=== PATIENT | male | born 1955 | race Caucasian/White ===

== ENCOUNTER → 2018-06-23 | Outpatient (CLI) | payer OTHER ==
[2018-06-23 17:45] LABS: Appearance,Urine Clear (Clear); Bilirubin,Urine Negative (Negative); Blood,Urine Negative (Negative); Color,Urine Yellow; Glucose,Urine (UA) Negative (Negative); HCT 45.8 % (39.0-53.0); HGB 15.3 gm/dL (13.0-17.5); Ketones,Urine Negative (Negative); Leukocyte Esterase,Urine Negative (Negative); MCH 31.8 pg (25.0-35.0); MCHC 33.4 g/dL (31.0-37.0); MCV 95.4 fL (80.0-100.0); Mean Platelet Volume 7.6; Nitrite,Urine Negative (Negative); PH, Urine 5.5 (5.0-8.0); Platelet Count 227 k/uL (150-450); Protein,Urine Negative (Negative); RDW 12.9 % (11.5-15.5); Specific Gravity,Urine 1.014 (1.001-1.035); Urobilinogen,Urine <2.0 mg/dL (<2.0); WBC 6.9 k/uL (3.8-10.6)
[2018-06-23 17:51] LABS: Partial Thromboplastin Time 24.2 sec (22.0-30.0); Prothrombin Time 10.4 sec (9.0-12.0)
[2018-06-23 17:52] LABS: Albumin 4.3 g/dL (3.5-5.0); Calcium 9.3 mg/dL (8.4-10.2); Potassium 4.5 mmol/L (3.5-5.1); Total Bilirubin 0.4 mg/dL (0.2-1.3)
== END | disposition home or self-care (01) ==
LOC: LABPAT 17:00
PROVIDERS: ATTEND Orthopaedic Surgery
DX: Z01.818 Encounter for other preprocedural examination (principal)
CPT/HCPCS: 80053; 81003; 85027; 85610; 85730

== ENCOUNTER → 2018-07-07 | Outpatient (CLI) | payer OTHER | END | disposition home or self-care (01) | LOC: LABPAT 16:35 | PROVIDERS: ATTEND Orthopaedic Surgery | DX: Z01.812 Encounter for preprocedural laboratory examination (principal) | CPT/HCPCS: 87070 ==

== ENCOUNTER 2018-07-18 05:53 | Inpatient (IN) | payer OTHER ==
[~2018-07-18 05:53] MED LIST: ACETAMINOPHEN TAB 500 MG TAB PO ONE; HYDROmorphone 0.5 MG/0.5 ML SYRINGE IVP PRN; MORPHINE SULFATE 4 MG/ML SYRINGE IV PRN; ONDANSETRON 4 MG/2 ML VIAL IVP ONE; TRANEXAMIC ACID 1,000 MG in SODIUM CHLORIDE 0.9% 100 ML IVPB ONE; ceFAZolin IN SWFI 2 GM/20 ML SYRINGE IVP ONE
[2018-07-18] MEDS: LACTATED RINGERS 1,000 ML IV SCH ×3 (06:45→16:15)
[2018-07-18] MEDS ORDERED: LIDOCAINE 1% 20 ML VIAL (10MG/ML) FOR IV START INTRADERMA ONE (06:45)
[2018-07-18] MEDS ORDERED: DEXAMETHASONE SOD PHOSPHATE 10 MG/ML 1 ML VIAL IV ONE (06:45)
[2018-07-18] MEDS ORDERED: fentaNYL (PF) 50 MCG/ML 2 ML AMP IV ONE (07:07)
[2018-07-18] MEDS ORDERED: MIDAZOLAM 2 MG/2 ML VIAL IV ONE (07:07)
--- NOTE | 2018-07-18 07:32 | P.ONQ ---
Anesthesiology Proc Note - PNB - Peripheral Nerve Block Performed Right Adductor Canal Infusion Time Out Performed: Yes Procedure Start Time: :08 Procedure Stop Time: : Indication: Acute Post-Operative Pain, Requested by physician (Dr Baptiste) Sedation Type: Sedate with meaningful contact maintained Preparation: Sterile Dressing Position: Supine Catheter: Indwelling Needle Types: On-Q, Touhy Needle Size: 100mm (4") Needle Gauge: 20 Technique: Ultrasound (Image saved) Injectate: 0.5% Ropivacaine (see comment for volume) (30 mls) Blood Aspirated: No Pain Paresthesia on Injection Noted: No Resistance on Injection: Normal Events: Uneventful and Well Tolerated
[2018-07-18] MEDS ORDERED: ROPIVACAINE 246.25 MG, EPINEPHrine 0.5 MG, KETOROLAC 30 MG, cloNIDine HCL/PF 80 MCG, WA... MISCELLANE ONE ×5 (07:41)
[2018-07-18] MEDS ORDERED: ROPIVACAINE 1,100 MG, SODIUM CHLORIDE 0.9% 500 ML 330 ML MISCELLANE PRN ×2 (07:57)
[2018-07-18] MEDS ORDERED: PROPOFOL 10 MG/ML 20 ML VIAL IV ONE (08:10)
[2018-07-18] MEDS ORDERED: TRANEXAMIC ACID 1,000 MG/10 ML VIAL ONE (08:10)
[2018-07-18] MEDS ORDERED: MIDAZOLAM 2 MG/2 ML VIAL ONE (08:10)
[2018-07-18] MEDS ORDERED: fentaNYL (PF) 50 MCG/ML 2 ML AMP ONE (08:10)
[2018-07-18] MEDS ORDERED: SODIUM CHLORIDE 0.9% 100 ML BAG ONE (08:10)
[2018-07-18] MEDS ORDERED: ceFAZolin 3,000 MG in SODIUM CHLORIDE 0.9% IRRIGATIO 3,000 ML IRRIGATION ONE (08:10)
[2018-07-18] MEDS ORDERED: LACTATED RINGERS 1,000 ML IV ONE (09:03)
[2018-07-18] MEDS ORDERED: BISACODYL 10 MG SUPP RECTAL PRN (10:43)
[2018-07-18] MEDS ORDERED: HYDROcodone/APAP 7.5-325MG 1 EACH TAB PO PRN (10:43)
[2018-07-18] MEDS ORDERED: NA PHOS,M-B/NA PHOS,DI-BA 133 ML ENEMA RECTAL PRN (10:43)
[2018-07-18] MEDS ORDERED: HYDROmorphone 0.5 MG/0.5 ML SYRINGE IVP PRN ×2 (10:43)
[2018-07-18] MEDS ORDERED: HYDROmorphone 1 MG/ML 1 ML SYRINGE IVP PRN (10:43)
[2018-07-18] MEDS ORDERED: NALOXONE 0.4 MG/ML 1 ML VIAL IV PRN (10:43)
[2018-07-18] MEDS ORDERED: TEMAZEPAM 15 MG CAP PO PRN (10:43)
[2018-07-18] MEDS ORDERED: hydrOXYzine PAMOATE 25 MG CAP PO PRN (10:43)
[2018-07-18] MEDS ORDERED: MAGNESIUM HYDROXIDE 2,400 MG/10 ML CUP PO PRN (10:43)
[2018-07-18] MEDS ORDERED: LACTATED RINGERS 1,000 ML IV SCH (10:45)
[2018-07-18 11:03] VITALS: RESP 16
--- NOTE | 2018-07-18 11:16 | XR ---
EXAMINATION TYPE: XR knee limited RT DATE OF EXAM: 07/18/2018 CLINICAL HISTORY: Right knee pain and arthritis status post total knee replacement. TECHNIQUE: Portable AP and crosstable lateral views of the right knee are obtained immediately posto peratively. COMPARISON: None FINDINGS: Metallic hardware from total right knee arthroplasty is seen and appears satisfactory in a lignment and position. There is evidence of recent surgery with diffuse subcutaneous gas and soft ti ssue swelling noted. IMPRESSION: METALLIC HARDWARE FROM TOTAL RIGHT KNEE ARTHROPLASTY IS SATISFACTORY IN ALIGNMENT.
[2018-07-18 14:19] VITALS: BP 135/78; PULSE 70; TEMP 98
[2018-07-18] MEDS ORDERED: ceFAZolin IN SWFI 2 GM/20 ML SYRINGE IVP SCH (16:00)
--- NOTE | 2018-07-18 18:36 | P.OP ---
Date of Procedure: 07/18/18 Procedure(s) Performed: PREOPERATIVE DIAGNOSIS: Right knee severe osteoarthritis with genu varum POSTOPERATIVE DIAGNOSIS: Right knee severe osteoarthritis with genu varum OPERATION: Right knee cemented total replacement arthroplasty. ANESTHESIA: Spinal ESTIMATED BLOOD LOSS: 100 ml. CHARTERED WEALTH MANAGER: Tennille Garrido PA-C (assistance with: patient positioning, retraction, exposure, hemostasis, leg positioning, implantation, irrigation, closure, dressing) COMPLICATIONS: None apparent. COMPONENTS IMPLANTED: Persona system from [employer] INDICATIONS: Mr. Damico is a 63-year-old male with a history of right knee osteoarthritis. The patient's knee is end-stage, and conservative management has failed. The operation of knee replacement has been discussed at length in the office, as well as potential risks and complications. These are inclusive of, but not limited to: bleeding, infection, scarring, discomfort, blood vessel and nerve damage, need for further surgery, failure to relieve symptoms, persistence, recurrence, or worsening of problems, loosening, dislocation, wear, blood clot, pulmonary embolism, , gait dysfunction, stiffness, and other risks as discussed in the office. The patient elects to proceed and the consent form has been signed. PROCEDURE: The patient was taken to the operating room and positioned on the operating room table in the supine position. Anesthesia was initiated. Care was taken to make sure that all pressure points were adequately padded. The operative lower extremity was prepped and draped in the usual aseptic fashion using ChloraPrep. Ioban drape was used for the case and the patient received intravenous antibiotics within one hour of the incision. A pneumotourniquet and leg larson were used for the case. The limb was exsanguinated with an Esmarch bandage and the tourniquet was inflated to 350 mmHg. Time-out was called confi rming the patient's identity, side, procedure and administration of antibiotics and tranexamic acid. The incision was then created midline directly over the knee, carried down through skin and into the subcutaneous tissues and down to fascia. Full thickness subcutaneous medial flap was developed. Medial parapatellar arthrotomy was performed and the interior of the knee was inspected. There was end-stage osteoarthritis of the knee with a mild to moderate genu varum type deformity. The fat pad was excised and proximal medial release on the tibia was completed using meticulous dissection and a curved osteotome. The anterior cruciate ligament was taken down. Note was made of significant attrition of the anterior and significant degenerative appearance of the cruciate ligaments. The exposure was excellent. The knee was flexed 90 degrees and the patella was everted. A spot was chosen on the femur approximately 1 cm anterior to the posterior cruciate ligament insertion and an intramedullary hole was created within the femur. The intramedullary guide was then set to 5 degrees of valgus. The distal cutting block was attached and pinned into position. An appropriate amount of distal fe moral resection was set. The oscillating saw was then used to make the distal femoral cut. This cut was confirmed to be flat with the flat end of an osteotome. The retractors were placed around the tibia and the tibial surface was addressed. The angle and depth of resection was adjusted using an extramedullary cutting guide. The guide had a built-in 3 degree posterior slope cut. Once the cutting guide was adjusted appropriately and in line with the axis of the tibia and confirmed to be in good position in relation to the second metatarsal and transmalleolar axis, the tibial cut was then created with protection of the posterior neurovascular structures and the collateral ligaments. The tibial cut surface was removed and sized. Femoral sizing was then accomplished using anterior referencing. Care was taken to analyze the posterior condyles for signs of deficiency or severe wear, and adjustments to the guide were made, as appropriate. 3 degree external rotation pins were placed. The cutting jig for the femur was applied to these pins. The planned cuts were further analyzed prior to performing them with the oscillating saw. No femoral notching was produced. Bone fragments were removed and the cut surfaces were finished, as necessary, with a reciprocating saw. Spacer block technique was then used to confirm that the flexion and extension gaps were equal. Soft tissue releases and adjustment of the tibial and/or femoral cuts were made, as necessary, until the gaps were equal. This included release of the posterior cruciate ligament, which was excessively tight in this patient. The femur was then further finished for a posterior cruciate ligament substituting component. Patellar resurfacing was performed using a reamer. The size of the required patellar component was estimated and the patellar surface was then reamed down to a residual thickness which would recreate the wiyot thickness with the component. The exact placement of the patellar component was adjusted for position based on preoperative x-rays and intraoperative findings. Prior to placing trial components, anesthetic solution consisting of ropivicaine with epinephrine, ketorolac, and clonidine was injected carefully and methodically in a grid pattern using aspiration technique into the soft tissue around the knee circumferentially, starting with the deeper tissues first and progressing to fascia, and then finally the skin/subcutaneous tissue. Particular care was taken when injecting the posterior capsule. The trial components were inserted. The tibial tray was allowed to self center and the patella was noted to track very well. The position of the tibial component was marked and the tibia was then finished for a stemmed tibial component. Cement was mixed on the back table and applied to the final components. Trial components were removed and the cut surfaces of the bone were pulse lavaged thoroughly and dried. Cement was then applied to the tibial surface and pressurized into the surface using finger pressurization technique. The tibial component was then applied and excess cement was removed after it was impacted securely and noted to be flush with the cut surface. In similar fashion, the cement was applied to the cut femoral surface, pressurized in using finger pressurization and the component was impacted into place. Excess cement was removed. The polyethylene spacer was then implanted and locked into position. The patellar component was then applied in similar technique and a patellar clamp was used to hold the patella in place as the cement hardened. Once the cement had fully hardened, the knee was reinspected. Any other cement extrusion was removed and final kinematic testing showed range of motion from 0 to 130 degrees with excellent stability, both medially and laterally and appropriate alignment of the leg. Patellar tracking was excellent. The knee was then thoroughly pulse lavaged with normal saline. The tourniquet was deflated and hemostasis was obtained with electrocautery and IV tranexamic acid, 1 g given at the start of the operation and 1 g at the start of closure. Closure was with #2 Ethibond in the fascia/capsule and supplemented with #2 Quill, 2-0 Vicryl suture was used for the subcutaneous tissues and 3-0 Quill for the skin. Dermabond/Steri-Strips were then applied. A lightly compressive dressing was applied using Webril and an Donavon wrap. The patient was then transferred to stretcher and taken to the recovery room in stable condition. Sponge and needle counts were correct.
[2018-07-18] MEDS ORDERED: SENNOSIDES-DOCUSATE SODIUM 1 EACH TAB PO SCH (21:00)
--- NOTE | 2018-07-19 05:23 | P.PN ---
Progress Note - Text Progress Note Date: 07/19/18 63 yo male status post right total knee replacement. Patient received the adduc tor canal catheter. Ropivacaine 0.2% at 8 mls/hr. Patient was sitting in bed comfortably. VAS score of 0/10, no complains overnight. Assessment and plan: patient will be sent home with the adductor canal pump. Adequate pain control.
[2018-07-19] MEDS ORDERED: MELOXICAM 7.5 MG TAB PO SCH (09:00)
[2018-07-19] MEDS ORDERED: RIVAROXABAN 10 MG TAB PO SCH (09:00)
== END 2018-07-18 18:00 | disposition home health service (06) | DRG 470 ==
LOC: 2ORMAIN 05:53 → 4SSUR 10:43
PROVIDERS: ADMIT Orthopaedic Surgery; ATTEND Orthopaedic Surgery
PROC: 0SRC0J9 Replacement of Right Knee Joint with Synthetic Substitute, Cemented, Open Approach (ICD-10-PCS; principal; 2018-07-18 08:00)
DX: M17.11 Unilateral primary osteoarthritis, right knee (principal); I10 Essential (primary) hypertension; M21.161 Varus deformity, not elsewhere classified, right knee; Z79.82 Long term (current) use of aspirin; Z79.890 Hormone replacement therapy; Z79.899 Other long term (current) drug therapy; Z82.49 Family history of ischemic heart disease and other diseases of the circulatory system
CPT/HCPCS: 88300

== ENCOUNTER → 2018-12-07 | Outpatient (CLI) | payer OTHER ==
--- NOTE | 2018-12-07 09:41 | US ---
EXAMINATION TYPE: US abdomen complete DATE OF EXAM: 12/07/2018 COMPARISON: NONE CLINICAL HISTORY: Z82.3 Family Hx of Stroke. Family history of AAA. No problems EXAM MEASUREMENTS: Liver Length: 16.2 cm Gallbladder Wall: 0.2 cm CBD: 0.75 cm Spleen: 11.6 cm Right Kidney: 11.0 x 5.2 x 5.1 cm Left Kidney: 11.0 x 5.8 x 5.1 cm Pancreas: Mostly by bowel gas. Duct visualized measuring 0.25 centimeters in the pancreatic body, wi thin normal limits Liver: There is increased echogenicity of the hepatic parenchyma with diminished visualization of th e portal triads most commonly relating to hepatic steatosis and limiting evaluation for underlying he patic masses. Gallbladder: wnl Evidence for sonographic Wyman's sign: No CBD: Dilated. Distal portion obscured by bowel gas Spleen: wnl Right Kidney: No hydronephrosis or masses seen Left Kidney: No hydronephrosis. Probable renal sinus cyst measuring 1.3 cm Upper IVC: wnl Abd Aorta: Slightly obscured by bowel gas. No sonographic evidence for AAA. IMPRESSION: 1. Although the abdominal aorta is slightly obscured by bowel gas and no discrete sonographic evidenc e of abdominal aortic aneurysm is seen. 2. Sonographic findings most commonly related to hepatic steatosis, appearing mild in degree. Correla te with liver function tests. 3. Minimally dilated common bile duct although no other sonographic evidence of acute cholelithiasis is seen. Correlate with serum laboratory values and clinical exam to determine the need for MRCP or H DERREK scan.
== END | disposition home or self-care (01) ==
LOC: RADUSWWP 06:47
PROVIDERS: ATTEND Family Medicine
DX: K83.8 Other specified diseases of biliary tract (principal)
CPT/HCPCS: 76700

== ENCOUNTER → 2018-12-19 | Outpatient (CLI) | payer OTHER ==
--- NOTE | 2018-12-19 22:36 | MR ---
EXAMINATION TYPE: MR brain wo con DATE OF EXAM: 12/19/2018 COMPARISON: NONE HISTORY: no prior, family history of aneurysm, no current symptoms TECHNIQUE: Multiplanar, multisequence imaging of the brain and brainstem is performed without IV cont rast. FINDINGS: Diffusion weighted images demonstrate no evidence of a recent infarct or other diffusion abnormality. There is no worrisome extra-axial fluid collection. Mild ventricular and sulcal prominence. Scattered foci of T2 hyperintensity are seen throughout the white matter bilaterally. Approximately 15 scatter ed small lesions are seen. Midline structures demonstrate normal morphology. The craniocervical junction appears within normal limits. Normal vascular flow voids are present. Dominant left vertebral artery incidentally noted. Th ere is moderate mucosal thickening in the left maxillary sinus with large mucous retention cyst or po lyp. Mild mucosal thickening ethmoid sinuses bilaterally, left greater than right. Globes are intact bilaterally. IMPRESSION: Mild age-related diffuse cerebral atrophy and chronic small vessel ischemic change. Chron ic paranasal sinus disease most prominent at level of left maxillary sinus.
== END | disposition home or self-care (01) ==
LOC: RADMRIMAIN 16:43
PROVIDERS: ATTEND Nurse Practitioner
DX: Z13.89 Encounter for screening for other disorder (principal); Z84.89 Family history of other specified conditions
CPT/HCPCS: 70551

== ENCOUNTER → 2019-02-27 | Outpatient (CLI) | payer OTHER ==
--- NOTE | 2019-02-27 23:22 | MR ---
EXAMINATION TYPE: MR knee LT wo con DATE OF EXAM: 02/27/2019 COMPARISON: None HISTORY: Left Knee Pain, S/P Fall TECHNIQUE: Multiplanar, multisequence imaging of the left knee is performed without IV contrast. FINDINGS: The posterior cruciate ligament is intact. There is complete disruption of the anterior cruciate liga ment. There is moderate narrowing of the medial and lateral joint spaces. There is extensive increase d signal throughout the medial meniscus. There is increased signal on the proton-density images at th e base of the tibial spines and also medial tibial condyle consistent with edema and bone bruise. The re is also 1.5 cm area of edema in the lateral femoral condyle. There is extensive spurring of the me dial and lateral femoral and tibial condyles. There is complex horizontal tears of the entire lateral meniscus. There is mild knee joint effusion. I see no fracture line. There is 4 x 1 cm popliteal cys t. The collateral ligaments appear intact. IMPRESSION: Moderately severe osteoarthritis. Complete tear anterior cruciate ligament. Knee joint effusion. Popl iteal cyst Extensive tears of the medial and lateral menisci. Multiple areas of bone bruise and edema in the dis reno femur and proximal tibia.
== END | disposition home or self-care (01) ==
LOC: RADMRIMAIN 16:16
PROVIDERS: ATTEND Nurse Practitioner
DX: M17.12 Unilateral primary osteoarthritis, left knee (principal); S83.512A Sprain of anterior cruciate ligament of left knee, initial encounter; S83.242A Other tear of medial meniscus, current injury, left knee, initial encounter; S83.282A Other tear of lateral meniscus, current injury, left knee, initial encounter

== ENCOUNTER → 2019-05-24 | Outpatient (CLI) | payer OTHER ==
[2019-05-24 07:16] LABS: HCT 51.8 % (39.0-53.0); HGB 16.9 gm/dL (13.0-17.5); MCH 30.8 pg (25.0-35.0); MCHC 32.6 g/dL (31.0-37.0); MCV 94.6 fL (80.0-100.0); Mean Platelet Volume 7.9; Platelet Count 242 k/uL (150-450); RBC 5.48 m/uL (4.30-5.90); RDW 12.6 % (11.5-15.5); WBC 6.1 k/uL (3.8-10.6)
[2019-05-24 07:24] LABS: Partial Thromboplastin Time 23.4 sec (22.0-30.0); Prothrombin Time 10.3 sec (9.0-12.0)
[2019-05-24 07:37] LABS: Albumin 4.2 g/dL (3.5-5.0); Calcium 9.5 mg/dL (8.4-10.2); Potassium 5.3 mmol/L (3.5-5.1); Total Bilirubin 0.6 mg/dL (0.2-1.3); Total Protein 7.1 g/dL (6.3-8.2)
[2019-05-24 07:49] LABS: Appearance,Urine Clear (Clear); Bilirubin,Urine Negative (Negative); Blood,Urine Negative (Negative); Color,Urine Yellow; Glucose,Urine (UA) Negative (Negative); Ketones,Urine Negative (Negative); Leukocyte Esterase,Urine Negative (Negative); Nitrite,Urine Negative (Negative); PH, Urine 6.5 (5.0-8.0); Protein,Urine Negative (Negative); Specific Gravity,Urine 1.022 (1.001-1.035); Urobilinogen,Urine <2.0 mg/dL (<2.0)
== END | disposition home or self-care (01) ==
LOC: LABPAT 06:41
PROVIDERS: ATTEND Orthopaedic Surgery
DX: Z01.818 Encounter for other preprocedural examination (principal); Z01.812 Encounter for preprocedural laboratory examination; M17.12 Unilateral primary osteoarthritis, left knee
CPT/HCPCS: 36415; 80053; 81003; 85027; 85610; 85730; 87070

== ENCOUNTER 2019-06-05 05:49 | Day surgery (SDC) | payer OTHER ==
[2019-05-29 10:57] VITALS: BMI 28.6
[~2019-06-05 05:49] MED LIST changes: -HYDROmorphone 0.5 MG/0.5 ML SYRINGE IVP PRN; +MELOXICAM 7.5 MG TAB PO ONE; -MORPHINE SULFATE 4 MG/ML SYRINGE IV PRN; -ceFAZolin IN SWFI 2 GM/20 ML SYRINGE IVP ONE
[2019-06-05] MEDS ORDERED: ROPIVACAINE 246.25 MG, EPINEPHrine 0.5 MG, KETOROLAC 30 MG, cloNIDine HCL/PF 80 MCG, WA... MISCELLANE ONE ×5 (06:00)
[2019-06-05] MEDS ORDERED: DEXAMETHASONE SOD PHOSPHATE 10 MG/ML 1 ML VIAL IV ONE (07:02)
[2019-06-05] MEDS ORDERED: LACTATED RINGERS 1,000 ML IV ONE ×2 (07:02→09:23)
[2019-06-05] MEDS ORDERED: MIDAZOLAM 2 MG/2 ML VIAL IVP ONE (07:10)
[2019-06-05] MEDS ORDERED: fentaNYL (PF) 50 MCG/ML 2 ML AMP ONE (07:34)
[2019-06-05] MEDS ORDERED: PROPOFOL 10 MG/ML 20 ML VIAL IV ONE (07:34)
[2019-06-05] MEDS ORDERED: MIDAZOLAM 2 MG/2 ML VIAL ONE (07:34)
[2019-06-05] MEDS ORDERED: SUCCINYLCHOLINE CHLORIDE 100 MG/5 ML SYR IV ONE (07:34)
[2019-06-05] MEDS ORDERED: LIDOCAINE 1% INJ 10MG/ML (20 ML MDV) ONE (07:34)
[2019-06-05] MEDS ORDERED: HYDROmorphone (PF) 1 MG/ML ONE (07:34)
[2019-06-05] MEDS ORDERED: ceFAZolin 3,000 MG in SODIUM CHLORIDE 0.9% IRRIGATIO 3,000 ML IRRIGATION ONE (07:38)
--- NOTE | 2019-06-05 09:20 | P.OP ---
Date of Procedure: 06/05/19 Procedure(s) Performed: PREOPERATIVE DIAGNOSIS: Left knee severe osteoarthritis with genu varum POSTOPERATIVE DIAGNOSIS: Left knee severe osteoarthritis with genu varum OPERATION: Left knee cemented total replacement arthroplasty. ANESTHESIA: Spinal ESTIMATED BLOOD LOSS: 100 ml. PLATFORM WORKER: Tennille Garrido PA-C (assistance with: patient positioning, retraction, exposure, hemostasis, leg positioning, implantation, irrigation, closure, dressing) COMPLICATIONS: None apparent. COMPONENTS IMPLANTED: Persona system from [employer] INDICATIONS: Mr. Damico is a 64 year old male with a history of left knee osteoarthritis. Conservative treatment has been tried and has been unsuccessful in controlling symptoms adequately. The operation of knee replacement has been discussed at length in the office, as well as potential risks and complications. These are inclusive of, but not limited to: bleeding, infection, scarring, discomfort, blood vessel and nerve damage, need for further surgery, failure to relieve symptoms, persistence, recurrence, or worsening of problems, loosening, dislocation, wear, blood clot, pulmonary embolism, , gait dysfunction, stiffness, and other risks as discussed in the office. The patient elects to proceed and the consent form has been signed. PROCEDURE: The patient was taken to the operating room and positioned on the operating room table in the supine position. Anesthesia was initiated. Care was taken to make sure that all pressure points were adequately padded. The operative lower extremity was prepped and draped in the usual aseptic fashion using ChloraPrep. Ioban drape was used for the case and the patient received intravenous antibiotics within one hour of the incision. A pneumotourniquet and leg larson were used for the case. The limb was exsanguinated with an Esmarch bandage and the tourniquet was inflated to 350 mmHg. Time-out was called confirming the patient's identity, side, procedure and administration of antibiotics and tranexamic acid, 1 g IV. The incision was then created midline directly over the knee, carried down thro ugh skin and into the subcutaneous tissues and down to fascia. Full thickness subcutaneous medial flap was developed. Medial parapatellar arthrotomy was performed and the interior of the knee was inspected. There was end-stage osteoarthritis of the knee with a mild to moderate genu varum type deformity. The fat pad was excised and proximal medial release on the tibia was completed using meticulous dissection and a curved osteotome. The anterior cruciate ligament was taken down. Note was made of significant attrition of the anterior and significant degenerative appearance of the posterior cruciate ligaments. The exposure was excellent. The knee was flexed 90 degrees and the patella was everted. A spot was chosen on the femur approximately 1 cm anterior to the posterior cruciate ligament insertion and an intramedullary hole was created within the femur. The intramedullary guide was then set to 5 degrees of valgus. The distal cutting block was attached and pinned into position. An appropriate amount of distal femoral resection was set. The oscillating saw was then used to make the distal femoral cut. This cut was confirmed to be flat with the flat end of an osteotome. The retractors were placed around the tibia and the tibial surface was addressed. The angle and depth of resection was adjusted using an extramedullary cutting guide. The guide had a built-in 3 degree posterior slope cut. Once the cutting guide was adjusted appropriately and in line with the axis of the tibia and confirmed to be in good position in relation to the second metatarsal and transmalleolar axis, the tibial cut was then created with protection of the posterior neurovascular structures and the collateral ligaments. The tibial cut surface was removed and sized. Femoral sizing was then accomplished using anterior referencing. Care was taken to analyze the posterior condyles for signs of deficiency or severe wear, and adjustments to the guide were made, as appropriate. 3 degree external rotation pins were placed. The cutting jig for the femur was applied to these pins. The planned cuts were further analyzed prior to performing them with the oscillating saw. No femoral notching was produced. Bone fragments were removed and the cut surfaces were finished, as necessary, with a reciprocating saw. Spacer block technique was then used to confirm that the flexion and extension gaps were equal. Soft tissue releases and adjustment of the tibial and/or femoral cuts were made, as necessary, until the gaps were equal. This included release of the posterior cruciate ligament, which was tight in this patient. The femur was then further finished for a posterior cruciate ligament substituting component. Patellar resurfacing was performed using a reamer. The size of the required p atellar component was estimated and the patellar surface was then reamed down to a residual thickness which would recreate the seneca thickness with the component. The exact placement of the patellar component was adjusted for position based on preoperative x-rays and intraoperative findings. Prior to placing trial components, anesthetic solution consisting of ropivicaine with epinephrine, ketorolac, and clonidine was injected carefully and methodically in a grid pattern using aspiration technique into the soft tissue around the knee circumferentially, starting with the deeper tissues first and progressing to fascia, and then finally the skin/subcutaneous tissue. Particular care was taken when injecting the posterior capsule. The trial components were inserted. The tibial tray was allowed to self center and the patella was noted to track very well. The position of the tibial component was marked and the tibia was then finished for a stemmed tibial component. Cement was mixed on the back table and applied to the final components. Trial components were removed and the cut surfaces of the bone were pulse lavaged thoroughly and dried. Cement was then applied to the tibial surface and pressurized into the surface using finger pressurization technique. The tibial component was then applied and excess cement was removed after it was impacted securely and noted to be flush with the cut surface. In similar fashion, the cement was applied to the cut femoral surface, pressurized in using finger pressurization and the component was impacted into place. Excess cement was removed. The polyethylene spacer was then implanted and locked into position. The patellar component was then applied in similar technique and a patellar clamp was used to hold the patella in place as the ce ment hardened. Once the cement had fully hardened, the knee was reinspected. Any other cement extrusion was removed and final kinematic testing showed range of motion from 0 to 130 degrees with excellent stability, both medially and laterally and appropriate alignment of the leg. Patellar tracking was excellent. The knee was then thoroughly pulse lavaged with normal saline. The tourniquet was deflated and hemostasis was obtained with electrocautery and IV tranexamic acid, 1 g given prior to inflation of the tourniquet and another gram given at the time of closure. Closure was with #2 Ethibond in the fascia and supplemented with #2 Quill, 2-0 Vicryl suture was used for the subcutaneous tissues and 3-0 Quill for the skin. Dermabond/Steri-Strips were then applied. A lightly compressive dressing was applied using Webril and an Donavon wrap. [facility] was [facility] and taken to the recovery room in stable condition. Sponge and needle counts were correct.
[2019-06-05] MEDS ORDERED: ONDANSETRON 4 MG/2 ML VIAL IVP PRN (09:54)
[2019-06-05] MEDS ORDERED: BISACODYL 10 MG SUPP RECTAL PRN (09:54)
[2019-06-05] MEDS ORDERED: HYDROmorphone 1 MG/ML 1 ML SYRINGE IVP PRN (09:54)
[2019-06-05] MEDS ORDERED: HYDROcodone/APAP 7.5-325MG 1 EACH TAB PO PRN (09:54)
[2019-06-05] MEDS ORDERED: HYDROmorphone 0.5 MG/0.5 ML SYRINGE IVP PRN ×2 (09:54)
[2019-06-05] MEDS ORDERED: HYDROcodone/APAP 5-325MG 1 EACH TAB PO PRN (09:54)
[2019-06-05] MEDS ORDERED: NA PHOS,M-B/NA PHOS,DI-BA 133 ML ENEMA RECTAL PRN (09:54)
[2019-06-05] MEDS ORDERED: NALOXONE 0.4 MG/ML 1 ML VIAL IV PRN (09:54)
[2019-06-05] MEDS ORDERED: TEMAZEPAM 15 MG CAP PO PRN (09:54)
[2019-06-05] MEDS ORDERED: MAGNESIUM HYDROXIDE 2,400 MG/10 ML CUP PO PRN (09:54)
[2019-06-05] MEDS ORDERED: LACTATED RINGERS 1,000 ML IV SCH (10:00)
[2019-06-05] MEDS ORDERED: ROPIVACAINE 0.2%-NS ON-Q PUMP 1,090 MG, EMPTY PAIN BALL 1 EACH MISCELLANE PRN (10:17)
[2019-06-05] MEDS ORDERED: HYDROmorphone 1 MG/ML 1 ML SYRINGE IVP ONE ×2 (10:20→10:30)
--- NOTE | 2019-06-05 10:20 | P.ANPRN ---
Procedure Note - Anesthesia - Nerve Block Performed Left Adductor Canal Infusion Time Out Performed: Yes Date of Procedure: 06/05/19 Procedure Start Time: 07:10 Procedure Stop Time: 07:21 Location of Patient: PreOp Indication: Acute Post-Operative Pain, Requested by Surgeon Sedation Type: Sedate with meaningful contact maintained Preparation: Sterile Prep, Sterile Dressing Position: Supine Catheter: Indwelling Needle Types: Pajunk Needle Gauge: 21 Ultrasound used to visualize needle placement: Yes Ultrasound used to observe medication spread: Yes Blood Aspirated: No Pain Paresthesia on Injection Noted: No Resistance on Injection: Normal Image Stored and Saved: Yes Events: Uneventful and Well Tolerated (ropi .5% plus dexamethasone 4mg)
--- NOTE | 2019-06-05 10:37 | XR ---
EXAMINATION TYPE: XR knee limited LT DATE OF EXAM: 06/05/2019 COMPARISON: NONE TECHNIQUE: Two views submitted HISTORY: Post op FINDINGS: There is a prosthetic knee in near anatomic alignment. There is soft tissue edema and emphysema. IMPRESSION: 1. Postoperative change. Appears in near-anatomic alignment
[2019-06-05] MEDS ORDERED: HYDROmorphone 0.5 MG/0.5 ML SYRINGE IVP ONE (10:50)
[2019-06-05 13:40] VITALS: BP 129/77; PULSE 70; RESP 12; TEMP 97.9
[2019-06-05] MEDS ORDERED: SENNOSIDES-DOCUSATE SODIUM 1 EACH TAB PO SCH (21:00)
[2019-06-05] MEDS ORDERED: ASPIRIN 325 MG TAB PO SCH (21:00)
[2019-06-06] MEDS ORDERED: MELOXICAM 7.5 MG TAB PO SCH (09:00)
== END 2019-06-05 15:57 | disposition home health service (06) ==
LOC: OR 05:49 → 4SSUR 10:15 → OR 15:57
PROVIDERS: ATTEND Orthopaedic Surgery
DX: M17.12 Unilateral primary osteoarthritis, left knee (principal); M21.162 Varus deformity, not elsewhere classified, left knee; I10 Essential (primary) hypertension; N40.0 Benign prostatic hyperplasia without lower urinary tract symptoms; E07.9 Disorder of thyroid, unspecified; Z87.891 Personal history of nicotine dependence; Z79.82 Long term (current) use of aspirin; Z79.899 Other long term (current) drug therapy; Z79.890 Hormone replacement therapy; Z96.651 Presence of right artificial knee joint; Z98.890 Other specified postprocedural states; Z87.440 Personal history of urinary (tract) infections; Z82.49 Family history of ischemic heart disease and other diseases of the circulatory system
CPT/HCPCS: 97161; 64448; 76942; 84132; 88300; 73560; 27447; C1713; C1776; J2250; J0171; J1100; J0690 ×2; J2405; J2001; J3010; J1885; J1170 ×2; J2795 ×2; J0330; J2704; J0735

== ENCOUNTER → 2020-05-17 | Outpatient (CLI) | payer OTHER | END | disposition home or self-care (01) | LOC: LABWHC1 08:52 | PROVIDERS: ATTEND Urology | DX: R97.20 Elevated prostate specific antigen [PSA] (principal) | CPT/HCPCS: 36415; 84153 ==

== ENCOUNTER → 2020-09-09 | Outpatient (CLI) | payer OTHER | END | disposition home or self-care (01) | LOC: LABWHC1 10:58 | PROVIDERS: ATTEND Urology | DX: R97.20 Elevated prostate specific antigen [PSA] (principal) | CPT/HCPCS: 36415; 84153 ==

== ENCOUNTER → 2021-03-03 | Outpatient (CLI) | payer MEDICARE, OTHER | END | disposition home or self-care (01) | LOC: LABWHC1 10:35 | PROVIDERS: ATTEND Urology | DX: R97.20 Elevated prostate specific antigen [PSA] (principal) | CPT/HCPCS: 36415; 84153 ==

== ENCOUNTER → 2021-09-01 | Outpatient (CLI) | payer OTHER | END | disposition home or self-care (01) | LOC: LABWHC1 09:25 | PROVIDERS: ATTEND Urology | DX: R97.20 Elevated prostate specific antigen [PSA] (principal) | CPT/HCPCS: 36415; 84153; 84154 ==

== ENCOUNTER → 2022-06-04 | Outpatient (CLI) | payer MEDICARE | END | disposition home or self-care (01) | LOC: LABWHC1 08:19 | PROVIDERS: ATTEND Urology | DX: R97.20 Elevated prostate specific antigen [PSA] (principal) | CPT/HCPCS: 36415; 84153 ==

== ENCOUNTER → 2022-12-02 | Outpatient (CLI) | payer MEDICARE | END | disposition home or self-care (01) | LOC: LABWHC1 07:39 | PROVIDERS: ATTEND Urology | DX: R97.20 Elevated prostate specific antigen [PSA] (principal) | CPT/HCPCS: 36415; 84153 ==

== ENCOUNTER → 2023-04-16 | Outpatient (CLI) | payer MEDICARE ==
--- NOTE | 2023-04-16 12:19 | CA ---
Exercise Stress Test Report Name: Chetan Damico Exam Date: 04/16/2023 09:31 Exam Location: [place] Stress Ht (in): 67 Wt (lb): 185 BSA: 1.96 Ordering Phys: Sanam Oakley DO Referring Phys: Rene Ramey Technologist: Shakeel Contreras Age: 68 Gender: M : 1955 Procedure CPT: Indications: R94.31 ABNORMAL ELECTROCARDIOGRAM [ECG] [EKG] ICD-10 Codes: Patient History: PALP, TOB, RHEUM FEV Medications: SEE LIST Meds past 24 hrs: Pretest Chest Pain: STRESS TEST [place] Protocol Exercise Duration (min:sec): 09:[address] Depressions (mm): Angina Score: Cox Score: Resting HR (bpm): 51 Peak HR (bpm): 143 Resting BP (mmHg): 131 / 79 Peak BP (mmHg): 206 / 75 MPHR: 153 Target HR: 130 % MPHR: 93 METS: 10.9 Total Dose: Peak Dose: Atropine: Double Product: 97591 BP Response: Stress Termination: Reached target heart rate Stress Symptoms: Stress Summary: ECG ANALYSIS Resting ECG: Normal sinus rhythm, normal ECG Stress ECG: No significant ST-T wave changes that are diagnostic for ischemia with exercise. There were no sustained arrhythmias ectopic beats. CONCLUSIONS Good exercise tolerance for patient's age exercising for 9 minutes 30 seconds achieving 10.9 METs Nonischemic ECG response to exercise Normal hemodynamic and clinical response to exercise next Overall normal treadmill stress test Dr Enrrique Kyle (Electronically Signed) Final Date: 16 April 2023 12:18
--- NOTE | 2023-04-18 18:11 | NM ---
EXAMINATION TYPE: NM stress cardiolite complete DATE OF EXAM: 04/16/2023 COMPARISON: NONE CLINICAL INDICATION: Male, 68 years old with history of R94.31; TECHNIQUE: After the intravenous administration of 10.2 mCi Tc 99m Sestamibi - Rest images obtained 48 minutes post injection. The patient exercised using a CURRY protocol and 1 minute prior to peak exercise was injected with 25.4 mCi Tc 99m Sestamibi - Stress images obtained 15 minutes post injecti on. FINDINGS: Targeted heart rate (130 BPM) was achieved during performance of the study (143 BPM achieved). Total exercise time 9 minutes 30 seconds. Review of stress and rest SPECT images demonstrates fixed perfusion defect along the inferior wall. N o distinct reversibility is seen though polar map suggests that there may be slight reversibility marcello ng the inferior wall. Gated analysis shows normal wall motion with an estimated left ventricular ejection fraction of 66 %. TID is calculated at 0.88, within normal limits. IMPRESSION: Fixed defect along the inferior wall may be due to prominent diaphragmatic attenuation artifact. Sunita elate for any history of prior infarct. Polar maps do suggest slight reversibility along the inferior wall. Unable to exclude some inducible ischemia here. Diaphragmatic attenuation artifact is favored. Further evaluation as clinically indicated.
== END | disposition home or self-care (01) ==
LOC: RADNMMAIN 07:31
PROVIDERS: ATTEND Family Medicine
DX: R07.9 Chest pain, unspecified (principal); R94.31 Abnormal electrocardiogram [ECG] [EKG]
CPT/HCPCS: 93017; 78452; A9500

== ENCOUNTER 2023-12-31 09:43 | Observation (INO) | payer MEDICARE ==
--- NOTE | 2023-12-31 10:03 | ED ---
Chest Pain HPI - General Chief Complaint: Chest Pain Stated Complaint: chest pain Time Seen by Provider: 12/31/23 10:02 Source: patient, RN notes reviewed, old records reviewed Mode of arrival: wheelchair Limitations: no limitations - History of Present Illness Initial Comments: This is a 68-year-old male to the ER today. This patient presents today for evaluation regards to chest pain chest pain left-sided chest pain persistent chest pain here in the emergency department patient is having persistent chest pain chest pain seen in the left lower chest and shortness of breath. MD Complaint: chest pain -: days(s) Onset: during rest, during exertion Pain Location: left chest Pain Radiation: LUE Severity: mild Severity scale (1-10): 3 Quality: tightness Consistency: constant Improves With: nothing Worsens With: nothing Anginal Symptoms: diaphoresis, dyspnea, sense of impending doom Other Symptoms: palpitations Treatments Prior to Arrival: none - Related Data Home Medications Medication Instructions Recorded Confirmed Levothyroxine Sodium [Synthroid] 75 mcg PO DAILY 07/07/18 12/31/23 Tamsulosin [Flomax] 0.4 mg PO BID 07/07/18 12/31/23 lisinopriL [Zestril] 10 mg PO DAILY 07/07/18 12/31/23 Ascorbic Acid [Vitamin C] 1,000 mg PO DAILY 05/29/19 12/31/23 Magnesium Oxide 400 mg PO DAILY 05/29/19 12/31/23 Ubidecarenone [Co Q-10] 100 mg PO DAILY 05/29/19 12/31/23 Cholecalciferol [Vitamin D3 (125 125 mcg PO DAILY 12/31/23 12/31/23 Mcg = 5000 Iu)] Fish Oil/Dha/Epa [Fish Oil 1,200 1 cap PO BID 12/31/23 12/31/23 mg Fish Oil] Milk Thistle 300 mg PO DAILY 12/31/23 12/31/23 Mv-Min/Folic/K1/Lycopen/Lutein 1 tab PO DAILY 12/31/23 12/31/23 [Centrum Silver Men Tablet] Zinc Gluconate [Zinc] 50 mg PO DAILY 12/31/23 12/31/23 Previous Rx's Medication Instructions Recorded Aspirin [Adult Low Dose Aspirin EC] 81 mg PO DAILY #1 tablet. 07/18/18 Allergies Allergy/AdvReac Type Severity Reaction Status Date / Time No Known Allergies Allergy Verified 12/31/23 11:35 Review of Systems ROS Statement: Those systems with pertinent positive or pertinent negative responses have been documented in the HPI. ROS Other: All systems not noted in ROS Statement are negative. EKG Findings - EKG Comments: EKG Findings:: EKG is sinus bradycardia 56 MS 183 QRS 94 QTc 373 - EKG Results: EKG: interpreted by PETRA Past Medical History Past Medical History: Hypertension, Osteoarthritis (OA), Prostate Disorder, Thyroid Disorder Additional Past Medical History / Comment(s): CURRENTLY ON ANITIOBIOTICS FOR URI History of Any Multi-Drug Resistant Organisms: None Reported Past Surgical History: Hernia Repair, Orthopedic Surgery Additional Past Surgical History / Comment(s): RT KNEE SX X 2. COLONOSCOPY Past Anesthesia/Blood Transfusion Reactions: No Reported Reaction Past Psychological History: No Psychological Hx Reported Smoking Status: Never smoker Past Alcohol Use History: Occasional Past Drug Use History: None Reported - Past Family History Mother Family Medical History: Cancer General Exam Limitations: no limitations General appearance: alert, in no apparent distress Head exam: Present: atraumatic, normocephalic, normal inspection Eye exam: Present: normal appearance, PERRL, EOMI. Absent: scleral icterus, conjunctival injection, periorbital swelling ENT exam: Present: normal exam, mucous membranes moist Neck exam: Present: normal inspection. Absent: tenderness, meningismus, lymphadenopathy Respiratory exam: Present: normal lung sounds bilaterally. Absent: respiratory distress, wheezes, rales, rhonchi, stridor Cardiovascular Exam: Present: regular rate, normal rhythm, normal heart sounds. Absent: systolic murmur, diastolic murmur, rubs, gallop, clicks GI/Abdominal exam: Present: soft, normal bowel sounds. Absent: distended, tenderness, guarding, rebound, rigid Extremities exam: Present: normal inspection, full ROM, normal capillary refill. Absent: tenderness, pedal edema, joint swelling, calf tenderness Back exam: Present: normal inspection Neurological exam: Present: alert, oriented X3, CN II-XII intact Psychiatric exam: Present: normal affect, normal mood Skin exam: Present: warm, dry, intact, normal color. Absent: rash Course Vital Signs 12/31/23 12/31/23 12/31/23 09:51 16:00 18:00 Temperature 98.0 F Pulse Rate 61 61 60 Respiratory 16 16 16 Rate Blood Pressure 131/83 134/72 O2 Sat by Pulse 98 98 98 Oximetry 12/31/23 12/31/23 12/31/23 18:55 20:00 21:00 Temperature Pulse Rate 60 58 L 54 L Respiratory 16 16 16 Rate Blood Pressure O2 Sat by Pulse 97 98 97 Oximetry 12/31/23 12/31/23 12/31/23 22:00 22:25 22:28 Temperature Pulse Rate 65 56 L 51 L Respiratory 16 16 16 Rate Blood Pressure 130/80 138/94 O2 Sat by Pulse 98 98 Oximetry - Reevaluation(s) Reevaluation #1: 12/31/23 13:52 Records reviewed Reevaluation #2: 12/31/23 13:53 Patient symptoms unchanged Reevaluation #3: 12/31/23 13:53 Patient informed of results and questions answered Reevaluation #4: Was pt. sent in by a medical professional or institution (, PA, NUTRITION PARTNER, urgent care, hospital, or skilled nursing...) When possible be specific @ -no Did you speak to anyone other than the patient for history (EMS, parent, family, police, friend...)? What history was obtained from this source @ -no Did you review nursing and triage notes (agree or disagree)? Why? @ -agree Are old charts reviewed (outside hosp., previous admission, EMS record, old EKG, old radiological studies, urgent care reports/EKG's, skilled nursing records)? Report findings @ -yes Differential Diagnosis (chest pain, altered mental status, abdominal pain women, abdominal pain men, vaginal bleeding, weakness, fever, dyspnea, syncope, headache, dizziness, GI bleed, back pain, seizure, CVA, palpatations, mental health, musculoskeletal)? @ -prior EKG interpreted by me (3pts min.). @ -yes X-rays interpreted by me (1pt min.). @ -yes negative for acute disease CT interpreted by me (1pt min.). @ -Yes negative for acute disease U/S interpreted by me (1pt. min.). @ -no What testing was considered but not performed or refused? (CT, X-rays, U/S, labs)? Why? @ -none What meds were considered but not given or refused? Why? @ -none Did you discuss the management of the patient with other professionals (professionals i.e. , PA, NUTRITION PARTNER, lab, RT, psych nurse, director social welfare, shoe repair supervisor, teacher, chief environmental commitment officer, classification case manager)? Give summary @ -no Was smoking cessation discussed for >3mins.? @ -no Was critical care preformed (if so, how long)? @ -yes31 Were there social determinants of health that impacted care today? How? (Homelessness, low income, unemployed, alcoholism, drug addiction, transportation, low edu. Level, literacy, decrease access to med. care, assisted, rehab)? @ -none Was there de-escalation of care discussed even if they declined (Discuss DNR or withdrawal of care, Hospice)? DNR status @ -no What co-morbidities impacted this encounter? (DM, HTN, Smoking, COPD, CAD, Cancer, CVA, ARF, Chemo, Hep., AIDS, mental health diagnosis, sleep apnea, morbid obesity)? @ -none Was patient admitted / discharged? Hospital course, mention meds given and route, prescriptions, significant lab abnormalities, going to OR and other pertinent info. @ - 68 Male presenting with acute chest pain today chest pain and paresthesia type symptoms, he does feel short of breath and pain persist throughout ER stay. Patient has strong family history of aneurysm although no findings of aneurysm here in the emergency room. Patient will be admitted for cardiology observation Admitted Undiagnosed new problem with uncertain prognosis? @ -no Drug Therapy requiring intensive monitoring for toxicity (Heparin, Nitro, Insulin, Cardizem)? @ -no Were any procedures done? @ -no Diagnosis/symptom? @ -Chest pain paresthesia aneurysm history Acute, or Chronic, or Acute on Chronic? @ -Acute Uncomplicated (without systemic symptoms) or Complicated (systemic symptoms)? @ -Complicated Side effects of treatment? @ -no Exacerbation, Progression, or Severe Exacerbation? @ -exacerbation Poses a threat to life or bodily function? How? (Chest pain, [place], [place], pneumonia, PE, COPD, DKA, ARF, appy, cholecystitis, CVA, Diverticulitis, Homicidal, Suicidal, threat to staff... and all critical care pts) @ -yes with chest pain Reevaluation #5: Differential Chest Pain: Stable Angina, Unstable Angina, STEMI, NSTEMI Aortic Dissection, Pneumothorax, Musculoskeletal, Esophageal Spasm GERD, Cholecystitis, Pancreatitis, Zoster, this is not meant to be an all-inclusive list. - Consultations Consultation #1: Spoke with admitting physicians who agreed to admit the patient Chest Pain MDM - MDM 68 Male presenting with acute chest pain today chest pain and paresthesia type symptoms, he does feel short of breath and pain persist throughout ER stay. Patient has strong family history of aneurysm although no findings of aneurysm here in the emergency room. Patient will be mated for cardiology observation Critical Care Time Critical Care Time: Yes Total Critical Care Time: 31 Disposition Clinical Impression: Chest pain Disposition: ADMITTED IP TO THIS HOSP Condition: Fair Is patient prescribed a controlled substance at d/c from ED?: No Time of Disposition: 13:40
[2023-12-31 11:07] LABS: Basophils % (A) 1 %; Eosinophils # (A) 0.1 k/uL (0-0.7); Eosinophils % (A) 2 %; HCT 49.2 % (39.0-53.0); HGB 16.8 gm/dL (13.0-17.5); Lymphocytes # (A) 1.2 k/uL (1.0-4.8); Lymphocytes % (A) 18 %; MCH 32.2 pg (25.0-35.0); MCHC 34.1 g/dL (31.0-37.0); MCV 94.3 fL (80.0-100.0); Mean Platelet Volume 8.8; Monocytes # (A) 0.4 k/uL (0-1.0); Monocytes % (A) 6 %; Neutrophils # (A) 4.9 k/uL (1.3-7.7); Neutrophils % (A) 71 %; Platelet Count 248 k/uL (150-450); RBC 5.21 m/uL (4.30-5.90); WBC 6.9 k/uL (3.8-10.6)
[2023-12-31 11:15] LABS: Prothrombin Time 10.9 sec (10.0-12.5)
[2023-12-31 11:39] LABS: ALT 35 U/L (4-49); AST 35 U/L (17-59); African American GFR (CKD) 72 (>60 ml/min/1.73 sqM); Albumin 4.3 g/dL (3.5-5.0); Alkaline Phosphatase 52 U/L (38-126); Anion Gap 5 mmol/L; Blood Urea Nitrogen 15 mg/dL (9-20); Calcium 9.8 mg/dL (8.4-10.2); Carbon Dioxide 25 mmol/L (22-30); Chloride 108 mmol/L (98-107); Glucose 93 mg/dL (74-99); Lipase 95 U/L (23-300); Magnesium 2.1 mg/dL (1.6-2.3); Non-African American GFR(CKD) 62 (>60 ml/min/1.73 sqM); Potassium 4.2 mmol/L (3.5-5.1); Sodium 138 mmol/L (137-145)
[2023-12-31 11:47] LABS: NT-Pro-B-Type Natriuretic Pept 105 pg/mL
[2023-12-31] MEDS: SODIUM CHLORIDE 0.9% 1,000 ML IV STA (12:35)
[2023-12-31] MEDS: SODIUM CHLORIDE 0.9% 500 ML 500 ML IV STA (12:36)
--- NOTE | 2023-12-31 12:59 | CT ---
EXAMINATION TYPE: CT angio chest DATE OF EXAM: 12/31/2023 12:44 PM COMPARISON: None HISTORY: chest pain, headache, high BP, elevated d-dimer. r/o aneurysm. CT DLP: 4025.2 mGycm Automated exposure control for dose reduction was used. CONTRAST: CTA scan of the thorax is performed without and with IV Contrast, patient injected with 165ml mL of I sovue 370, pulmonary embolism protocol. . FINDINGS: LUNGS: Groundglass changes are nonspecific. There is a 3 mm nodule in the right upper lobe. No pleura l effusion or pneumothorax. Airways grossly patent. MEDIASTINUM: Request for assessment of aorta which appears of normal caliber with no evidence of aneu rysm or dissection. Suboptimal enhancement of the pulmonary arteries. Technique request was for CT of the aorta which limits assessment of the pulmonary arteries. Grossly no central PE. Cannot exclude a third order or distal pulmonary artery embolism. Heart size normal. Mild coronary artery calcificati on. Borderline mediastinal and hilar adenopathy nonspecific possibly reactive. OTHER: Hepatic steatosis. Small hiatal hernia. Nonspecific thickening of the adrenal glands. Generat jody changes spine. IMPRESSION: 1. Reported request was for chest pain assessment of the aorta. No evidence of aneurysm or dissection . 2. Groundglass changes involving the lungs favor atelectasis over pneumonitis correlate clinically. 3. There is a 3 mm nodule right upper lobe. Recommend 12 month follow-up CT scan according the flexor cystitis guidelines.
--- NOTE | 2023-12-31 13:05 | CT ---
EXAMINATION TYPE: CT abdomen pelvis w con DATE OF EXAM: 12/31/2023 COMPARISON: None HISTORY: chest pain, headache, high BP, elevated d-dimer. r/o aneurysm. CT DLP: 4025.2 mGycm Automated exposure control for dose reduction was used. CONTRAST: CT scan of the abdomen pelvis is performed with IV Contrast, patient injected with mL of Isovue 370. FINDINGS- LUNG BASES- see separate dictated report LIVER/GB- steatosis. PANCREAS- No gross abnormality is seen. SPLEEN- accessory splenule noted. ADRENALS- nonspecific thickening of the adrenal glands too small to characterize. KIDNEYS/BLADDER-no hydronephrosis. Bilateral parapelvic renal cysts. 8mm hyperdense left renal lesion for which ultrasound recommended. Marked prostatomegaly with bladder wall thickening correlate for c ystitis. BOWEL- small hiatal hernia. Nonspecific bowel gas pattern. Diverticulosis of the colon. LYMPH NODES- No greater than 1cm abdominal or pelvic lymph nodes are appreciated. OSSEOUS STRUCTURES- degenerative changes of the spine. Bilateral hip arthropathy. Hypertrophic SI edward int arthropathy. OTHER- aorta of normal caliber. There is diastases recti of the anterior abdominal wall. Small amoun t of fluid or soft tissue density in the periumbilical region of uncertain etiology recommend follow- up IMPRESSION- 1. Aorta is of normal caliber. 2. Hyperdense left renal lesion recommend ultrasound to exclude neoplasm. 3. Small hiatal hernia. 4. Marked prostatomegaly with bladder wall thickening correlate for cystitis.
--- NOTE | 2023-12-31 13:09 | CT ---
EXAMINATION TYPE: CT brain wo con DATE OF EXAM: 12/31/2023 COMPARISON: None HISTORY: chest pain, headache, high BP, elevated d-dimer. r/o aneurysm. CT DLP: 4025.2 mGycm Automated exposure control for dose reduction was used. FINDINGS: Changes of chronic sinusitis. Orbits are symmetric. Basal ganglia calcifications noted. No midline sh ift. No mass effect. No acute hemorrhage. Calvarium intact. CSF prominence in the left anterior tempo ral fossa may represent prominent CSF space versus tiny arachnoid cyst. IMPRESSION: NO ACUTE HEMORRHAGE OR MASS EFFECT. IF CLINICAL CONCERN FOR ACUTE ISCHEMIA (RECOMMEND CORRELATION WIT H FOLLOW-UP MRI.
--- NOTE | 2023-12-31 13:18 | CT ---
EXAMINATION TYPE: CT angio head neck DATE OF EXAM: 12/31/2023 HISTORY: chest pain, headache, high BP, elevated d-dimer. r/o aneurysm. COMPARISON: CT DLP: 4025.2 mGycm. Automated Exposure Control for Dose Reduction was Utilized. TECHNIQUE: CTA scan of the head and neck is performed with IV Contrast, patient injected with mL of Isovue 370, axial images are obtained, coronal and sagittal reformatted images are reviewed. 3D recon structed images are created on an independent workstation and reviewed. FINDINGS: Groundglass changes involving the lungs nonspecific correlate for atelectasis versus pneumonitis bord miguel mediastinal and hilar lymphadenopathy correlate clinically. Mild atherosclerotic change of the carotid bifurcations. Origin of the great vessels appear patent. V ertebral artery is fairly symmetric in size Intracranially the vertebral basilar system and carotid systems are patent. No sizable aneurysm or pr oximal vascular occlusion. Distal branches limited. Hypoplastic A1 segment greater on the right. Hypertrophic and degenerative changes of the spine. IMPRESSION: 1. No significant carotid bifurcation stenosis. 2. No evidence of aneurysm or central vascular intracranial occlusion. Recommend correlation MRI\MRA if patient symptomatic.. NASCET criteria was used in interpretation of this exam?
[2023-12-31] MEDS ORDERED: ONDANSETRON 4 MG/2 ML VIAL IVP PRN (13:47)
[2023-12-31] MEDS ORDERED: MORPHINE SULFATE 4 MG/ML SYRINGE IV PRN (13:47)
[2023-12-31] MEDS ORDERED: NALOXONE 0.4 MG/ML 1 ML VIAL IV PRN (13:47)
[2023-12-31] MEDS: TAMSULOSIN 0.4 MG CAP.ER.24H PO SCH (22:22)
[2024-01-01 08:54] VITALS: RESP 18; TEMP 98.1
[2024-01-01] MEDS: LEVOTHYROXINE 75 MCG TAB PO SCH (08:57)
[2024-01-01] MEDS: MAGNESIUM OXIDE 400 MG TAB PO SCH (08:57)
[2024-01-01] MEDS: ASPIRIN 81 MG PO SCH (08:57)
[2024-01-01] MEDS: lisinopriL 10 MG TAB PO SCH (08:57)
[2024-01-01] MEDS: CHOLECALCIFEROL 125 MCG (5000 IU) TABLET PO SCH (08:57)
[2024-01-01 09:52] LABS: African American GFR (CKD) 72 (>60 ml/min/1.73 sqM); Anion Gap 4 mmol/L; Blood Urea Nitrogen 12 mg/dL (9-20); Calcium 8.9 mg/dL (8.4-10.2); Carbon Dioxide 24 mmol/L (22-30); Chloride 111 mmol/L (98-107); Glucose 97 mg/dL (74-99); Non-African American GFR(CKD) 62 (>60 ml/min/1.73 sqM); Potassium 4.7 mmol/L (3.5-5.1); Sodium 139 mmol/L (137-145)
--- NOTE | 2024-01-01 11:48 | P.CRDCN ---
History of Present Illness Consult date: 01/01/24 Consult reason: chest pain History of present illness: This is a 68-year-old male patient of Dr. Crenshaw with past medical history of hypertension, hypothyroidism, benign prostatic hypertrophy, remote history of tobacco use. Patient presented to the hospital due to chest pain that started in the epigastric area and radiating up the sternum and shortness of breath that has been on and off for 2-3 days. The most recent episode lasted for couple hours. He states that he does not exercise and does not eat well. He drinks 24 beers/week. He denies any drug use. No FMH of CAD but there is a history aneurysm. No chest pain at the time of this evaluation. Patient has been started on his home medications and is status post 1-1/2 L of IV fluid. Blood pressure 128/77, heart rate 64, pulse ox 96% on room air. EKG: Sinus rhythm with no acute ST-T wave changes at 56 bpm. CTA of the chest reveals no evidence of aneurysm or dissection, atelectasis over pneumonitis, 3 mm nodule in the right upper lobe. CT of the abdomen and pelvis with contrast reveals aorta of normal caliber. Hyperdense left renal lesion. Small hiatal hernia. Marked prostatomegaly with bladder wall thickening correlate for cystitis. CT of the brain: No acute hemorrhage or mass effect. CT angio of the head and neck revealed no significant carotid bifurcation stenosis. No evidence of aneurysm or central vascular intracranial occlusion. Laboratory studies: CBC normal. D-dimer 1.12. Creatinine 1.2. Troponin negative x 3, magnesium 2.1, liver function test normal. proBNP 105. Lipase 95. Home cardiac medications: Aspirin 81 mg daily, fish oil 1 twice daily, l isinopril 10 mg daily, also on levothyroxine 75 mcg daily. Review Of Systems: At the time of my exam: CONSTITUTIONAL: Denies fever or chills. HEENT: Denies blurred vision, vision changes, or eye pain. Denies hemoptysis CARDIOVASCULAR: Denies chest pain. Denies orthopnea. Denies PND. Denies palpita tions RESPIRATORY: Denies shortness of breath. GASTROINTESTINAL: Denies abdominal pain. Denies nausea or vomiting. HEMATOLOGIC: Denies bleeding disorders. GENITOURINARY: Denies any blood in urine. SKIN: Denies puritis. Denies rash. Physical examination: Gen: This is a 68-year-old male in no acute distress VS: reviewed HEENT: Head is atraumatic, normocephalic. Pupils equal, round. Sclerae is an icteric. NECK: Supple. No JVD. LUNGS: Clear to auscultation. No wheezes or rhonchi. No intercostal retractions. HEART: Regular rate and rhythm. No murmur. ABDOMEN: Soft No tenderness. EXTREMITIES: No pedal edema. No calf tenderness. NEUROLOGICAL: Patient is awake, alert and oriented x3. Assessment: Atypical chest pain, acute coronary syndrome ruled out Hypertension Hypothyroidism Remote history of tobacco use Alcohol abuse Plan: Resume patient's home cardiac medications Obtain 2-D echocardiogram and Doppler study to assess cardiac structure and function If echocardiogram is unremarkable, patient is cleared for discharge and may follow-up in the office with Dr. Denita Crenshaw in 2 weeks with plan for outpatient stress testing. Thank you kindly for this consultation. Nurse practitioner note has been reviewed, I agree with documented findings and plan of care. Patient was seen and examined. Past Medical History Past Medical History: Hypertension, Osteoarthritis (OA), Prostate Disorder, Thyroid Disorder Additional Past Medical History / Comment(s): CURRENTLY ON ANITIOBIOTICS FOR URI History of Any Multi-Drug Resistant Organisms: None Reported Past Surgical History: Appendectomy, Hernia Repair, Orthopedic Surgery Additional Past Surgical History / Comment(s): RT KNEE SX X 2. COLONOSCOPY Past Anesthesia/Blood Transfusion Reactions: No Reported Reaction Past Psychological History: No Psychological Hx Reported Smoking Status: Never smoker Past Alcohol Use History: Occasional Additional Past Alcohol Use History / Comment(s): QUIT SMOKING 1979 Past Drug Use History: None Reported - Past Family History Mother Family Medical History: Cancer Medications and Allergies Home Medications Medication Instructions Recorded Confirmed Type Levothyroxine Sodium [Synthroid] 75 mcg PO DAILY 07/07/18 12/31/23 History Tamsulosin [Flomax] 0.4 mg PO BID 07/07/18 12/31/23 History lisinopriL [Zestril] 10 mg PO DAILY 07/07/18 12/31/23 History Aspirin [Adult Low Dose Aspirin EC] 81 mg PO DAILY #1 tablet. 07/18/18 12/31/23 Rx Ascorbic Acid [Vitamin C] 1,000 mg PO DAILY 05/29/19 12/31/23 History Magnesium Oxide 400 mg PO DAILY 05/29/19 12/31/23 History Ubidecarenone [Co Q-10] 100 mg PO DAILY 05/29/19 12/31/23 History Cholecalciferol [Vitamin D3 (125 125 mcg PO DAILY 12/31/23 12/31/23 History Mcg = 5000 Iu)] Fish Oil/Dha/Epa [Fish Oil 1,200 1 cap PO BID 12/31/23 12/31/23 History mg Fish Oil] Milk Thistle 300 mg PO DAILY 12/31/23 12/31/23 History Mv-Min/Folic/K1/Lycopen/Lutein 1 tab PO DAILY 12/31/23 12/31/23 History [Centrum Silver Men Tablet] Zinc Gluconate [Zinc] 50 mg PO DAILY 12/31/23 12/31/23 History Allergies Allergy/AdvReac Type Severity Reaction Status Date / Time No Known Allergies Allergy Verified 12/31/23 11:35 Physical Exam Vitals: Vital Signs Temp Pulse Pulse Resp BP BP Pulse Ox 01/01/24 03:19 98.7 F 64 20 128/77 96 12/31/23 23:00 98.1 F 71 18 150/93 97 12/31/23 22:28 51 L 16 12/31/23 22:25 56 L 16 138/94 98 12/31/23 22:00 65 16 130/80 98 12/31/23 21:00 54 L 16 97 12/31/23 20:00 58 L 16 98 12/31/23 18:55 60 16 97 12/31/23 18:00 60 16 98 12/31/23 16:00 61 16 134/72 98 12/31/23 09:51 98.0 F 61 16 131/83 98 Intake and Output 12/31/23 01/01/24 01/01/24 22:59 06:59 14:59 Other: # Voids 1 Weight 82.8 kg Results 12/31/23 10:29 01/01/24 07:57 Cardiac Enzymes 12/31/23 12/31/23 12/31/23 Range/Units 10:29 10:29 15:40 AST 35 (17-59) U/L Troponin I <0.012 <0.012 (0.000-0.034) ng/mL 12/31/23 Range/Units 18:16 AST (17-59) U/L Troponin I <0.012 (0.000-0.034) ng/mL Coagulation 12/31/23 Range/Units 10:29 PT 10.9 (10.0-12.5) sec APTT 24.0 (22.0-30.0) sec CBC 12/31/23 Range/Units 10:29 WBC 6.9 (3.8-10.6) k/uL RBC 5.21 (4.30-5.90) m/uL Hgb 16.8 (13.0-17.5) gm/dL Hct 49.2 (39.0-53.0) % Plt Count 248 (150-450) k/uL Comprehensive Metabolic Panel 12/31/23 Range/Units 10:29 Sodium 138 (137-145) mmol/L Potassium 4.2 (3.5-5.1) mmol/L Chloride 108 H (98-107) mmol/L Carbon Dioxide 25 (22-30) mmol/L BUN 15 (9-20) mg/dL Creatinine 1.20 (0.66-1.25) mg/dL Glucose 93 (74-99) mg/dL Calcium 9.8 (8.4-10.2) mg/dL AST 35 (17-59) U/L ALT 35 (4-49) U/L Alkaline Phosphatase 52 (38-126) U/L Total Protein 7.0 (6.3-8.2) g/dL Albumin 4.3 (3.5-5.0) g/dL Current Medications Generic Name Dose Route Start Last Admin Trade Name Mychal PRN Reason Stop Dose Admin Aspirin 81 mg 01/01/24 09:00 Aspirin 81 Mg PO DAILY AMADO Cholecalciferol 125 mcg 01/01/24 09:00 Cholecalciferol 125 Mcg (5000 Iu) Tablet PO DAILY AMADO Levothyroxine Sodium 75 mcg 01/01/24 09:00 Levothyroxine 75 Mcg Tab PO DAILY AMADO Lisinopril 10 mg 01/01/24 09:00 Lisinopril 10 Mg Tab PO DAILY AMADO Magnesium Oxide 400 mg 01/01/24 09:00 Magnesium Oxide 400 Mg Tab PO DAILY AMADO Morphine Sulfate 4 mg 12/31/23 13:47 Morphine Sulfate 4 Mg/Ml Syringe IV Q4HR PRN Severe Pain (Scale 7 to 10) Naloxone HCl 0.2 mg 12/31/23 13:47 Naloxone 0.4 Mg/Ml 1 Ml Vial IV Q2M PRN Opioid Reversal Ondansetron HCl 4 mg 12/31/23 13:47 Ondansetron 4 Mg/2 Ml Vial IVP Q8HR PRN Nausea And Vomiting Tamsulosin HCl 0.4 mg 12/31/23 21:00 12/31/23 22:22 Tamsulosin 0.4 Mg Cap.Er.24h PO 0.4 mg BID AMADO Administration Intake and Output 12/31/23 01/01/24 01/01/24 22:59 06:59 14:59 Other: # Voids 1 Weight 82.8 kg 12/31/23 10:29 12/31/23 10:29
[2024-01-01 12:17] VITALS: BP 153/85; PULSE 52
[2024-01-01 13:16] LABS: Basophils # (A) 0.02 X 10*3/uL (0.00-0.10); Basophils % (A) 0.4 %; Eosinophils # (A) 0.12 X 10*3/uL (0.04-0.35); Eosinophils % (A) 2.2 %; HGB 15.2 g/dL (13.0-17.0); Lymphocytes # (A) 1.01 X 10*3/uL (0.90-5.00); Lymphocytes % (A) 18.8 %; MCH 31.7 pg (27.0-32.0); MCHC 33.8 g/dL (32.0-37.0); MCV 93.9 FL (80.0-97.0); Mean Platelet Volume 10.2 FL (9.5-12.2); Monocytes # (A) 0.51 X 10*3/uL (0.20-1.00); Monocytes % (A) 9.5 %; NRBC Per 100 WBC 0 X 10*3/uL (0.00-0.01); Neutrophils # (A) 3.69 X 10*3/uL (1.80-7.70); Neutrophils % (A) 68.7 %; Platelet Count 205 X 10*3/uL (140-440); RBC 4.79 X 10*6/uL (4.40-5.60); RDW 12.7 % (11.5-14.5); WBC 5.37 X 10*3/uL (4.50-10.00)
--- NOTE | 2024-01-01 15:12 | CA ---
Transthoracic Echo Report Name: Chetan Damico Age: 68 Gender: M : 1955 Exam Date: 01/01/2024 11:45 Exam Location: [facility] Ht (in): 67 Wt (lb): 180 Ordering Physician: Bertrand Lan DO Attending/Referring Phys: [id number], Riky Ham Passer Adelaide Cortez RDCS Procedure CPT: Indications: CP Cardiac Hx: Technical Quality: Fair Contrast 1: Total Dose (mL): Contrast 2: Total Dose (mL): MEASUREMENTS (Male / Female) Normal Values 2D ECHO LV Diastolic Diameter PLAX 4.3 cm 4.2 - 5.9 / 3.9 - 5.3 cm LV Systolic Diameter PLAX 2.2 cm IVS Diastolic Thickness 1.1 cm 0.6 - 1.0 / 0.6 - 0.9 cm LVPW Diastolic Thickness 1.2 cm 0.6 - 1.0 / 0.6 - 0.9 cm LV Relative Wall Thickness 0.6 RV Internal Dim ED PLAX 3.5 cm LA Volume 56.8 cm??? 18 - 58 / 22 - 52 cm??? LA Volume Index 28.6 cm???/m??? 16 - 28 cm???/m??? M-MODE Aortic Root Diameter MM 3.3 cm LA Systolic Diameter MM 4.3 cm LA Ao Ratio MM 1.3 AV Cusp Separation MM 1.8 cm DOPPLER AV Peak Velocity 142.3 cm/s AV Peak Gradient 8.1 mmHg AV Mean Velocity 91.7 cm/s AV Mean Gradient 3.9 mmHg AV Velocity Time Integral 30.0 cm LVOT Peak Velocity 118.0 cm/s LVOT Peak Gradient 5.6 mmHg LVOT Velocity Time Integral 26.2 cm MV Area PHT 4.3 cm??? Mitral E Point Velocity 90.5 cm/s Mitral A Point Velocity 84.2 cm/s Mitral E to A Ratio 1.1 MV Deceleration Time 175.6 ms MV E' Velocity 7.7 cm/s Mitral E to MV E' Ratio 11.8 TR Peak Velocity 247.0 cm/s TR Peak Gradient 24.4 mmHg Right Ventricular Systolic Press 28.7 mmHg FINDINGS Left Ventricle Mildly increased left ventricular wall thickness. Left ventricular cavity size normal. Normal left ventricular systolic function with no obvious regional wall motion abnormalities. Left ventricular ejection fraction is estimated at 55-60 %. Grade 1 diastolic dysfunction. Right Ventricle Mild right ventricular dilatation. Right ventricular systolic pressure within normal limits. Right Atrium Mild right atrial dilatation. Left Atrium Normal left atrial size. Mitral Valve Structurally normal mitral valve. Mitral valve thickened. Mitral annular calcification. Mild mitral regurgitation. Aortic Valve Trileaflet aortic valve. No aortic valve stenosis or regurgitation. Aortic valve sclerosis. Tricuspid Valve Structurally normal tricuspid valve. Mild tricuspid regurgitation. Pulmonic Valve Structurally normal pulmonic valve. No pulmonic regurgitation. Pericardium No pericardial effusion. Aorta Normal size aortic root and proximal ascending aorta. CONCLUSIONS Left ventricular ejection fraction 55-60% RVSP 29 Mild mitral regurgitation Mild tricuspid regurgitation No pericardial effusion Previewed by: Dr. Graham Jung DO (Electronically Signed) Final Date: 01 January 2024 15:11
--- NOTE | 2024-01-01 16:05 | P.HPIM ---
History of Present Illness H&P Date: 12/31/23 Chief Complaint: Chest pain 68-year-old male patient of Dr. Crenshaw with past medical history of hypertension, hypothyroidism, benign prostatic hypertrophy, remote history of tobacco use. Patient presented to the hospital due to chest pain that started in the epigastric area and radiating up the sternum and shortness of breath that has been on and off for 2-3 days. The most recent episode lasted for couple hours. He states that he does not exercise and does not eat well. He drinks 24 beers/week. He denies any drug use. EKG: Sinus rhythm with no acute ST-T wave changes at 56 bpm. CTA of the chest reveals no evidence of aneurysm or dissection, atelectasis over pneumonitis, 3 mm nodule in the right upper lobe. CT of the abdomen and pelvis with contrast reveals aorta of normal caliber. Hyperdense left renal lesion. Small hiatal hernia. Marked prostatomegaly with bladder wall thickening correlate for cystitis. CT of the brain: No acute hemorrhage or mass effect. CT angio of the head and neck revealed no significant carotid bifurcation stenosis. No evidence of aneurysm or central vascular intracranial occlusion. Laboratory studies: CBC normal. D-dimer 1.12. Creatinine 1.2. Troponin negative x 3, magnesium 2.1, liver function test normal. proBNP 105. Lipase 95. Review of Systems REVIEW OF SYSTEMS: CONSTITUTIONAL: No fever, no malaise, no fatigue. HEENT: No recent visual problems or hearing problems. Denied any sore throat. CARDIOVASCULAR: No chest pain, orthopnea, PND, no palpitations, no syncope. PULMONARY: No shortness of breath, no cough, no hemoptysis. GASTROINTESTINAL: No diarrhea, no nausea, no vomiting, no abdominal pain. NEUROLOGICAL: No headaches, no weakness, no numbness. HEMATOLOGICAL: Denies any bleeding or petechiae. GENITOURINARY: Denies any burning micturition, frequency, or urgency. MUSCULOSKELETAL/RHEUMATOLOGICAL: Denies any joint pain, swelling, or any muscle pain. ENDOCRINE: Denies any polyuria or polydipsia. The rest of the 14-point review of systems is negative. Past Medical History Past Medical History: Hypertension, Osteoarthritis (OA), Prostate Disorder, Thyroid Disorder Additional Past Medical History / Comment(s): CURRENTLY ON ANITIOBIOTICS FOR URI History of Any Multi-Drug Resistant Organisms: None Reported Past Surgical History: Hernia Repair, Orthopedic Surgery Additional Past Surgical History / Comment(s): RT KNEE SX X 2. COLONOSCOPY Past Anesthesia/Blood Transfusion Reactions: No Reported Reaction Past Psychological History: No Psychological Hx Reported Smoking Status: Never smoker Past Alcohol Use History: Occasional Past Drug Use History: None Reported - Past Family History Mother Family Medical History: Cancer Medications and Allergies Home Medications Medication Instructions Recorded Confirmed Type Levothyroxine Sodium [Synthroid] 75 mcg PO DAILY 07/07/18 12/31/23 History Tamsulosin [Flomax] 0.4 mg PO BID 07/07/18 12/31/23 History lisinopriL [Zestril] 10 mg PO DAILY 07/07/18 12/31/23 History Aspirin [Adult Low Dose Aspirin EC] 81 mg PO DAILY #1 tablet. 07/18/18 12/31/23 Rx Ascorbic Acid [Vitamin C] 1,000 mg PO DAILY 05/29/19 12/31/23 History Magnesium Oxide 400 mg PO DAILY 05/29/19 12/31/23 History Ubidecarenone [Co Q-10] 100 mg PO DAILY 05/29/19 12/31/23 History Cholecalciferol [Vitamin D3 (125 125 mcg PO DAILY 12/31/23 12/31/23 History Mcg = 5000 Iu)] Fish Oil/Dha/Epa [Fish Oil 1,200 1 cap PO BID 12/31/23 12/31/23 History mg Fish Oil] Milk Thistle 300 mg PO DAILY 12/31/23 12/31/23 History Mv-Min/Folic/K1/Lycopen/Lutein 1 tab PO DAILY 12/31/23 12/31/23 History [Centrum Silver Men Tablet] Zinc Gluconate [Zinc] 50 mg PO DAILY 12/31/23 12/31/23 History Allergies Allergy/AdvReac Type Severity Reaction Status Date / Time No Known Allergies Allergy Verified 12/31/23 11:35 Physical Exam Vitals: Vital Signs Temp Pulse Resp BP Pulse Ox 12/31/23 09:51 98.0 F 61 16 131/83 98 Intake and Output 12/31/23 12/31/23 12/31/23 06:59 14:59 22:59 Other: Weight 81.647 kg Gen: This is a 68-year-old male in no acute distress VS: reviewed HEENT: Head is atraumatic, normocephalic. Pupils equal, round. Sclerae is anicteric. NECK: Supple. No JVD. LUNGS: Clear to auscultation. No wheezes or rhonchi. No intercostal retractions. HEART: Regular rate and rhythm. No murmur. ABDOMEN: Soft No tenderness. EXTREMITIES: No pedal edema. No calf tenderness. NEUROLOGICAL: Patient is awake, alert and oriented x3. Results CBC & Chem 7: 01/01/24 07:57 01/01/24 07:57 Labs: Abnormal Lab Results - Last 24 Hours (Table) 12/31/23 12/31/23 Range/Units 10:29 10:29 D-Dimer 1.12 H (<0.60) mg/L FEU Chloride 108 H (98-107) mmol/L Assessment and Plan Assessment: 1. Chest pain rule out acute coronary syndrome -Patient will be admitted to telemetry; EKG and cycle troponin -Recommend 2D echo -Aspirin and beta-reynaldo Consult cardiology for further evaluation 2. Hypertension; Zestril 10 mg daily 3. Hyperlipidemia; currently not on any statin therapy 4. Hypothyroidism; levothyroxine 75 mcg daily 5. BPH; Flomax 0.4 mg daily DVT prophylaxis; SCDs CODE STATUS; full code
== END 2024-01-01 16:12 | disposition home or self-care (01) ==
LOC: EC 09:43 → 6NMEDSUR 13:51 → 3SCARD 22:08
PROVIDERS: ADMIT Hospitalist; ATTEND Hospitalist
DX: R07.89 Other chest pain (principal); I10 Essential (primary) hypertension; E03.9 Hypothyroidism, unspecified; N40.0 Benign prostatic hyperplasia without lower urinary tract symptoms; F10.10 Alcohol abuse, uncomplicated; E78.5 Hyperlipidemia, unspecified; Z87.891 Personal history of nicotine dependence; Z79.82 Long term (current) use of aspirin; Z79.890 Hormone replacement therapy; Z79.899 Other long term (current) drug therapy
CPT/HCPCS: 36415; 70450; 70496; 70498; 71275; 74177; 80048; 80053; 83690; 83735; 83880; 84484; 85025; 85379; 85610; 85730; 93005; 93306; 96360; 96361; 99291

== ENCOUNTER → 2024-12-01 | Outpatient (CLI) | payer MEDICARE | END | disposition home or self-care (01) | LOC: LABWHC1 07:43 | PROVIDERS: ATTEND Urology | DX: R97.20 Elevated prostate specific antigen [PSA] (principal) | CPT/HCPCS: 36415; 84153 ==